=== PATIENT | male | born 1960 | race American Indian/Alaskan Native ===

== ENCOUNTER → 2017-07-09 | Day surgery (SDC) | payer OTHER ==
[~2017-07-09] MED LIST: AMLO5TAB4 PO; CETI10TA22 PO; HYDROmorphone 2 MG/ML VIAL IV PRN; IV RINGERS,LACTATED 1000ML 1,000 ML IV SCH; LIDOCAINE 1% PF 2 ML VIAL. ID PRN; LIDOCAINE 2% PF Vial for OR 5 ML VIAL. ONE; MONT10TA9 PO; MORPHINE SULFATE 2 MG/ML DISP.SYRIN. IV PRN; NAPR500T8 PO; ONDANSETRON PF 4 MG/2 ML VIAL. IV PRN; PANT40TA3 PO; PROCHLORPERAZINE 10 MG/2 ML VIAL. IV PRN; PROPOFOL 40 ML IV ONE; fentaNYL PF VIAL 100 MCG/2 ML VIAL IV PRN
[2017-07-09 07:45] VITALS: BP 139/85
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
--- NOTE | 2017-07-10 15:01 | PATHOLOGY ---
PATHOLOGY REPORT * * * * * * * * FINAL DIAGNOSIS: Esophageal biopsies, distal esophagus: - Segments of hyperplastic squamous esophageal mucosa and esophagogastric mucosa showing chronic inflammation, consistent with reflux esophagitis. (JPM:ashley; 07/10/2017) COMMENT: Sections of the distal esophageal biopsy reveal segments of focally tangentially oriented, hyperplastic squamous esophageal mucosa and esophagogastric mucosa showing mild to moderate chronic inflammation. The findings are consistent with reflux esophagitis. There is no evidence of Hernandez's change, dysplasia, or malignancy. (JPM:ashley; 07/10/2017) REPORT ELECTRONICALLY SIGNED BY: Christophe Mayberry M.D. DATE/TIME: 07/10/2017 15:00 * * * * * * * * GROSS PATHOLOGY: Received in formalin labeled "Eliseo Miller distal esophagus," are 5 segments of rojas soft tissue measuring 1.4 x 1.1 x 0.2 cm in aggregate dimensions and ranging from 0.2 to 0.3 cm in maximum dimension. The specimen is submitted entirely in cassette A1. (TSD; 07/09/2017) INITIAL CPT CODE(S): A; 25666 Professional services performed by [facility] at [address] [address] Technical services performed by [facility] at [address] [place] [address], [address], [place] [address]. [facility], attention: Alyce Campbell fax: SPECIMEN(S) RECEIVED: A.Distal esophagus biopsies CLINICAL HISTORY: Epigastric pain, GERD PATIENT: ELISEO MILLER /AGE: 805/26/1960 (Age: 57) PATIENT #: [id number] ALT CASE #: SPECIMEN COLLECTION DATE: 07/09/2017 SPECIMEN RECEIVED DATE: 07/09/2017 [facility] - [id number] [address] - PHONE: [phone] * * * END OF REPORT * * *
== END | disposition home or self-care (01) ==
LOC: ENDOS 06:04 → EEVIPCON 07:00
PROVIDERS: ATTEND Internal Medicine Gastroenterology
DX: K21.0 Gastro-esophageal reflux disease with esophagitis (principal); K29.50 Unspecified chronic gastritis without bleeding
CPT/HCPCS: 43239; 88305; J2704; J2001